=== PATIENT | female | born 1940 | race Caucasian/White ===

== ENCOUNTER 2017-02-04 17:26 | Inpatient (IN) | payer MEDICARE ==
[~2017-02-04] VITALS: Ht 162.6 cm; Wt 70.2 kg
--- NOTE | ~2017-02-04 | FD ---
ADMIT: 02/04/2017 RM/LOC: 429 [facility] MR#: [id number] [address] [address] DIOR THOMSON [address] [place] [id number] Final Diagnosis SEX: F AGE: 76 : 1940 ADMISSION DATE: 02/04/2017 DISCHARGE DATE: 02/06/2017 Eufemia Zamora RN scribing for Dr. Dmitry Goetz. REASON FOR ADMISSION: Chest pain with elevated cardiac enzymes. PROCEDURES PERFORMED: On 02/05/[address] Armen Hector, selective coronary angiography with nonobstructive coronary artery disease finding. CONSULTS OBTAINED: On 02/06/2017, Dr. Trejo for dizziness. FINAL DIAGNOSES: 1. 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 2. Prior tissue aortic valve replacement. 3. Nonobstructive coronary artery disease. 4. Vertigo. Eufemia Zamora RN / Dmitry Goetz MD / panl JOB #: [id number] CC: Dmitry Goetz MD, Attending Physician UNKNOWN, Family Physician
--- NOTE | ~2017-02-04 | CATH ---
Cardiac Diagnostic Report Demographics Patient Name ALIX Rooney Gender Female Date of 1940 Age 76 year(s) Patient Number [id number] Date of Study 02/05/2017 Visit Number [id number] Room Number 429 [employer] Ht 162.56 cm Wt 69.85 kg Accession Number [id number] BSA 1.75 m kg/m Referring Sofy GARCIA Primary Physician Physician Dmitry Performing Fruehling Armen R Secondary Physician Physician Diagnostic Fruehling Armen R Assisting Physician Physician Interventional Fruehling Armen R Physician Redipper Physician Findings and Conclusions Diagnostic Findings and Conclusion 1. Non-obstructive CAD-No culprit stenosis noted 2. RC III flow throughout Diagnostic Recommendations 1. Will evaluate for further with an echo to assess LV function 2. Treat medically. Suspect elevated enzymes secondary to HTN or an apical ballooning variant. Procedure Description The patient was brought to the diagnostic cardiac catheterization laboratory in the fasting, non-sedated state. Informed consent was obtained in the written and verbal form after the risks and benefits were explained. The patient had no further questions and agreed to proceed. The planned puncture-incision site(s) were shaved and prepped with ChloraPrep and draped in the usual sterile manner. Conscious sedation, supplemental oxygen, and pain control medications were delivered by a registered nurse under physician guidance. Surface ECG rhythm, blood pressure measurement, and pulse oximetry were monitored throughout the procedure. Arterial access. The right radial access site was infiltrated with lidocaine. The vessel was entered with the Seldinger technique. A 6F sheath was advanced into the vessel and used for catheter placement. Radial cocktail administered per protocol. Selective right coronary angiography. A JR4 catheter was advanced into the right coronary vessel ostium under fluoroscopic guidance. Contrast was injected by hand. Images were obtained in multiple projections. Selective left coronary angiography. A FL3.5 catheter was advanced into the left coronary vessel ostium under Fluoroscopic guidance. Contrast was injected by hand. Images were obtained in multiple projections. Arterial artery hemostasis was achieved with a TR band. The patient was transferred to a regular nursing floor via cart accompanied by a nurse. The patient left the laboratory in stable condition. Diagnostic Cath Status: Urgent Procedure Procedure Type Diagnostic procedure:Angiography:, Coronary Angios Indications: NSTEMI, Diabetes and Hypertension. The procedure was explained in detail to the patient. Risks, complications and alternative treatments were reviewed. Written consent was obtained. Medications Reviewed with Patient prior to Procedure. Complications: No Complication. Angiographic Findings Dominance: Right Cardiac Arteries and Lesion Findings LMCA: Normal (0% Stenosis). LAD: Abnormal. Lesion on Mid LAD: 40% stenosis . Lesion on 1st Diag: Ostial.60% stenosis . LCx: Normal (0% Stenosis). RCA: Abnormal. Lesion on Mid RCA: 40% stenosis . Coronary Tree Procedure Data Procedure Date Date: 02/05/2017Start: 08:29 AMEnd: 08:58 AM Entry Locations - Percutaneous access was performed through the Right Radial artery (Primary location). A 6 Fr sheath was inserted. Hemostasis was successfully obtained using a TR band. Procedure Medications Order and Administration + + +-------+--------+ !Time !Medication !Dosage !Route ! + + +-------+--------+ !02/05/2017 !Versed !2 mg !I.V. ! !08:28 AM ! ! ! ! + + +-------+--------+ !02/05/2017 !Fentanyl !50 mcg !I.V. ! !08:28 AM ! ! ! ! + + +-------+--------+ !02/05/2017 !Sodium Chloride !10 ml !I.V. ! !08:28 AM ! ! ! ! + + +-------+--------+ !02/05/2017 !Oxygen !4 l/min!NC ! !08:31 AM ! ! ! ! + + +-------+--------+ !02/05/2017 !SF Radial Cocktail: 200mcg Nitro, 2.5 mg ! !I.A. ! !08:36 AM !Verapamil, 5000u Heparin ! ! ! + + +-------+--------+ Devices Used - ACATH 6F FR4 CATHETER 100CMwas used for:Right coronary angiography. - ACATH 6FR FL3.5 CATHETER 100CMwas used for:Left coronary angiography. Contrast Material - Isovue 39211 ml Fluoroscopy Time: Diagnostic: 3:48 minutes. Total: 3:48 minutes. Fluoroscopy Dose: Diagnostic: 454 mGy. Total: 454 mGy. Estimated Blood Loss: 7 ml. Medical History Allergies - Codiene. Risk Factors The patient risk factors include:hypertension, orally-treated diabetes mellitus, last creatinine: 1.1 mg/dl, creatinine clearance: 47.23 ml/min and prior valve surgery/procedure. Admission Data Admission Date: 02/04/2017 Admission Time: 05:26 PM Insurance Payors: Medicare. Clinical Evaluation Leading to Procedure - The patient's CAD presentation was assessed as: Non-STEMI. - The patient's anginal syndrome during the past two weeks was assessed as: Class IV according to the [place] Cardiovascular Society Classification System (CCS). Anti-anginal medications were prescribed during the past two weeks. The medication is: Beta Blockers. Hemodynamics Condition: Rest O2 Consumption: Estimated: 166.51Heart Rate: 82 bpm Pressures (mmHg) +-----+ + !Site !Pressure ! +-----+ + !AO !66/44 (54) ! +-----+ + Shunts Oxygen Values O2 Capacity 190.4 O2 Consumption 166.51 Signatures
--- NOTE | ~2017-02-04 | ECH ---
Transthoracic Echocardiography Report (TTE) Demographics Patient Name DIOR THOMSON Date of Study 02/05/2017 Patient Number [id number] Visit Number [id number] Date of 1940 Room Number 429 Accession Number [id number] Gender Female Age 76 year(s) Referring Seun Grimm MD [employer] Driver Yenifer Spencer [facility] Physician Physician Interpreting Krunal Izquierdo Superintendent [employer] Physician Supervising Ordering Physician Seun Grimm MD, MD/[facility] Nurse Stress Top Icer Conclusions Summary Technically good exam. The estimated left ventricular ejection fraction is 45%. Apical hypokinesis consistent with apical ballooning syndrome. Diastolic assessment reveals Grade I diastolic dysfunction. Normal right ventricle structure with reduced function. The patient is known to have a 23mm Beau Karimi bioprosthetic aortic valve. Mean gradient is 6 mmHg. Peak velocity obtained in apical view. There is no aortic regurgitation by color Doppler. Procedure Type of Study TTE procedure:Echo Complete SF. Procedure Date Date: 02/05/2017 Start: 11:27 AM Technical Quality: Good visualization Indications:Chest pain, Elevated Troponin, Diabetes, Hypertension, Left Bundle Branch Block (LBBB) and Prosthetic valve function. Additional Indications:NSTEMI Appropriate Use Criteria: 9 Height: 64 inches Weight: 154 pounds BSA: 1.75 m Rhythm: NSR HR: 62 bpm BP: 101/59 mmHg Allergies - Codiene. M-Mode/2D Measurements LV Diastolic Dimension: 5.22 cm LV Systolic Dimension: 3.95 cm LV Septum Diastolic: 0.77 cm LV PW Diastolic: 0.78 cm AO Root Dimension: 2.65 cm Cardiac Output: 5.63 l/min LA Dimension: 3.92 cm Cardiac Index: 3.22 l/min*m RV Diastolic Dimension: 3.38 cm LA volume index: 30 ml/m LVOT: 2.3 cm LVOT VTI: 21.88 cm RV Base: 2.7 cm LV Stroke volume: 90.86 ml RV Mid: 1.7 cm LV Stroke volume index: 51.92 ml/m TAPSE: 1 cm TDI-S': 8 cm/s Doppler Measurements AV Peak Velocity: 1.7 m/s MV Peak E-Wave: 0.56 m/s AV Peak Gradient: 11.56 mmHg MV Peak A-Wave: 1.08 m/s AV Mean Gradient: 5.34 mmHg MV E/A Ratio: 0.52 LVOT Peak Velocity: 1.03 m/s MV P1/2t: 48.5 msec AV Area (Continuity):2.6 cm MV Deceleration Time: 157.5 msec TR Velocity:2.35 m/s MV Area (PHT): 4.54 cm TR Gradient:22.09 mmHg PV Peak Velocity: 0.78 m/s Estimated RAP:3 mmHg PV Peak Gradient: 2.42 mmHg Estimated RVSP: 25 mmHg Estimated PASP: 25.09 mmHg E' Lateral Velocity: 0.05 m/s A' Lateral Velocity: 0.14 m/s RA Area: 9.99 cm Findings Left Ventricle The left ventricle is normal in size . Diastolic assessment reveals Grade I diastolic dysfunction. Right Ventricle Normal right ventricle structure with reduced function. Left Atrium Normal left atrial size. Right Atrium Normal right atrial size. Mitral Valve Normal mitral valve structure and function. Trivial mitral regurgitation by color Doppler. Aortic Valve The patient is known to have a 23mm Beau Karimi bioprosthetic aortic valve. Mean gradient is 6 mmHg. Peak velocity obtained in apical view. There is no aortic regurgitation by color Doppler. Tricuspid Valve Normal tricuspid valve structure and function. Mild tricuspid regurgitation by color Doppler. Normal pulmonary pressures. Pulmonic Valve Normal pulmonic valve structure and function. Mild-moderate pulmonic valve regurgitation by color Doppler. Pericardial Effusion No evidence of pericardial effusion. Miscellaneous Visualized portions of the aortic root and ascending aorta appear normal in size. Suboptimal subcostal window to evaluate the IVC and interatrial septum. Pleural Effusion No evidence of pleural effusion. Contractility Score LV regional wall motion:(0-Non visualized 1-Normal 2-Hypokinesis 3-Akinesis 4-Dyskinesis 5-Aneurysm) Signature
[2017-02-07] MEDS ORDERED: NEURONTIN DPS100 MG PO (11:03)
[2017-02-07] MEDS ORDERED: ASA CHILDREN'S81 MG PO (11:03)
[2017-02-07] MEDS ORDERED: GLUCOPHAGE-DPS500 MG PO (11:04)
[2017-02-07] MEDS ORDERED: ANTIVERT-DPS25 MG PO (11:04)
[2017-02-07] MEDS ORDERED: ZOCOR DPS40 MG PO (11:05)
[2017-02-07] MEDS ORDERED: VITAMIN D-32000 UNI1 PO (11:05)
[2017-02-07] MEDS ORDERED: COLACE-DPS100 MG PO (11:05)
[2017-02-07] MEDS ORDERED: METOPROLOL TART25 MG PO (11:05)
[2017-02-07] MEDS ORDERED: PLAVIX75 MG PO (11:06)
--- NOTE | 2017-02-18 06:36 | CO ---
ADMIT: 02/04/2017 RM/LOC: 429 [facility] MR#: [id number] [address] [address] DIOR ROSENBAUM [address] [place] [address] Consultation SEX: F AGE: 76 : 1940 DATE OF CONSULTATION: 02/06/2017 ATTENDING PHYSICIAN: Dmitry Goetz CONSULTING PHYSICIAN: Mateo Trejo MD CHIEF COMPLAINT: Dizziness. HISTORY OF PRESENT ILLNESS: Ms. Rosenbaum is 76-year-old. She presented with cardiac dysfunction or symptomatology, has undergone extensive evaluation including angiogram without identifiable cardiovascular disorder, but she describes dizziness that has been present over the last several days especially if she turns to the left or looks up. She states, several years ago she had a similar bout that lasted a couple of weeks and went away. She denies hearing change. She did not develop vomiting during these episodes, but does feel sick to her stomach. With the acute symptoms, she tends to turn back to the right side which helps to resolve the symptoms within 10-15 seconds. She denies hearing change, ear fullness, or peripheral motor or sensory neurologic changes. Present medications, allergies, ROS, PFSH summarized in medical chart. PHYSICAL EXAM: GENERAL: Ms. Rosenbaum is 76-year-old. She is alert. She is lying in her bed on the right side. HEENT: Her pupils are equal. Conjunctivae clear. Ear canals have cerumen, but not overly obstructive and TMs transparent. No middle ear effusion. Nose, mouth, and pharynx clear. Attempts at rolling on the left side cause acute vertigo with rotatory nystagmus to the left, has a mildly delayed onset, but within 1-2 seconds develops and is brisk. With initial attempt, we did resume right-sided position which allowed the vertigo to subside. A subsequent repeat test showed it to recur and with lying in the left side position, the vertigo did resolve within 15-20 seconds. Both episodes were associated with vertigo and nystagmus. IMPRESSION: History and exam consistent with benign positional vertigo, left sided. RECOMMENDATIONS: Physical therapy consultation with crystal realignment maneuver. I discussed the rationale for this with Ms. Rosenbaum who is in acceptance of the recommendation. Mateo Trejo MD/ martinez JOB #: [id number] CC: Dmitry Goetz, Attending Physician ADMIT: 02/04/2017 RM/LOC: 429 [facility] MR#: [id number] [address] [place] [id number] DIOR ROSENBAUM [address] [place] [address] Consultation SEX: F AGE: 76 : 1940 UNKNOWN, Family Physician
--- NOTE | 2017-03-06 10:32 | HP ---
ADMIT: 02/04/2017 RM/LOC: 429 [facility] MR#: [id number] [address] [address] [place] [address] History and Physical SEX: F AGE: 76 : 1940 DATE OF SERVICE: REASON FOR ADMISSION: Chest pain and elevated cardiac enzymes. HISTORY OF PRESENT ILLNESS: Jackie is a 76-year-old lady who underwent a bioprosthetic aortic valve replacement for symptomatic aortic stenosis in December 2015. She is also diabetic. Preoperatively, she had nonobstructive disease, mostly of the LAD. She did not require bypass. Her LV function has been preserved. She was transferred from [place] last night after an episode of chest discomfort, hypertension, and elevated cardiac enzymes. She has been struggling with vertigo for the past week. This has been really a problem for her and limiting. It is positional and she describes the room as spinning. It sounds like she was at physical therapy at [place] and they were trying maneuvers to help her with her vertigo. She said shortly after they were done, she had some chest discomfort, described as a moderate chest pressure, heaviness, substernally up into her upper chest. She said it felt like an elephant standing on her chest. There was some associated shortness of breath and then she said she felt a burning in her chest. Her blood pressure was markedly elevated at that time, greater than 190 systolic. She was taken to the ER. They took her to CAT scan, I think there were concerns of a possible stroke. The CT scan was reportedly negative. Her cardiac enzymes came back positive with a troponin of 2. In total, her chest discomfort lasted for about an hour and a half and as her blood pressure improves, so did her chest pain. She has an underlying left bundle branch block which is not new. Her initial troponin was over 2. Last night, when she arrived, her troponin was 8, CK was 200 with an MB of 26. This morning her troponin is down to 5.75. She has not had any chest discomfort overnight. Besides her left bundle branch block, she has not had any arrhythmias. Her vertigo has been her main limitation lately. She denies significant palpitations. Overall, she has felt better since her aortic valve was replaced. She has not had increasing edema, orthopnea, PND. No recent syncope or presyncope. PAST MEDICAL HISTORY: Illnesses include her history of aortic stenosis status post aortic valve replacement, hypertension, hyperlipidemia, diabetes, recent vertigo and she suffers from anxiety. PAST SURGICAL HISTORY: Includes a hysterectomy, appendectomy, 2 back surgeries. She has had elbow surgery and thumb surgery. ALLERGIES: CODEINE. HOME MEDICATIONS: Include: 1. Aspirin 81 daily. 2. Meclizine 12.5 mg 1-2 tabs t.i.d. p.r.n. 3. Gabapentin 300 mg at bedtime. 4. Metformin 500 daily. ADMIT: 02/04/2017 RM/LOC: 429 [facility] MR#: [id number] [address] [place] [id number] ALIX, [place] [address] History and Physical SEX: F AGE: 76 : 1940 5. Metoprolol 25 b.i.d. 6. Simvastatin 20 at bedtime. 7. Docusate 200 at bedtime. 8. Vitamin D3 2000 units daily. FAMILY HISTORY: Her father at age 87 of a myocardial infarction. She had a brother who of a heart attack at age 50. One brother and a sister with diabetes. Her mother from breast cancer. 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 She has been . She has 3 children. She has never smoked. She currently lives in [place], closer to a sister. No alcohol or illicit drug use. REVIEW OF SYSTEMS: A full 12-point review of systems was reviewed with the patient and noncontributory other than that mentioned in the HPI. PHYSICAL EXAM: VITAL SIGNS: Her blood pressure is 96/63, pulse is 76, respirations 14, she is afebrile, and O2 sats are 93% on room air. SKIN: Mildly pale. [place], warm and dry. EYES: Sclerae clear. No xanthelasmas. ENT: Oral mucosa is pink and moist. No jugular venous distention or carotid bruits. HEART: With a prominent S2 and a very soft systolic murmur at the upper sternal borders. Regular rate and rhythm. No rubs or gallops. CHEST: Mild kyphosis. Respirations are even and unlabored. Lungs are clear to auscultation. ABDOMEN: Soft and nontender. MUSCULOSKELETAL: Gait is normal. EXTREMITIES: Peripheral pulses palpable. No clubbing, cyanosis or edema. PSYCH: She is quite anxious and a little tangential in her thought process, but she is alert, oriented, and cooperative. LABORATORY DATA: Her platelets are 134,000, white count 5.7, hemoglobin is 14.0. Her troponin this morning is 5.75 with a CK of 199 and MB of 19.5. Her LDL is 73, HDL is 40, total cholesterol 153, triglycerides 198. Her creatinine 1.1, glucose 179, and potassium 3.9. A 12-lead EKG shows sinus rhythm with an underlying left bundle branch block, which is not new. IMPRESSION: 1. Sal-DM-ugmxaoupm acute coronary syndrome. 2. Prior bioprosthetic aortic valve replacement in December 2015. 3. Known history of nonobstructive coronary disease. 4. Type 2 diabetes. 5. Hypertension. 6. Hyperlipidemia. 7. Left bundle branch block. 8. Recent vertigo. ADMIT: 02/04/2017 RM/LOC: [address] [place] [address] MR#: [id number] [address] [address] JACKIE THOMSON [address] [address] History and Physical SEX: F AGE: 76 : 1940 RECOMMENDATIONS: She has a history of nonobstructive coronary disease and she now presents with chest discomfort consistent with angina. It was self- limited, but her cardiac biomarkers are positive, consistent with an acute coronary syndrome. She also has high risk features with a known history and her underlying diabetes and positive enzymes. Ultimately, I recommended coronary angiography. I will most likely avoid the bioprosthetic aortic valve and not perform a left heart catheterization. The procedure was discussed with her including the potential risk and benefits. Potential risks including, but not limited to, bleeding or vascular trauma, myocardial infarction, stroke, kidney failure, and even a small possibility of or disruption of her aortic valve. She states understanding and wishes to proceed. We will also do an echo. She is already on heparin. She is currently pain free and otherwise hemodynamically stable. We will plan on proceeding this morning. Armen Hector MD/ martinez JOB #: [id number] CC: Dmitry Goetz, Attending Physician UNKNOWN, Family Physician Sendy Moreno MD
== END 2017-02-06 16:20 | disposition home or self-care (01) | DRG 287 ==
LOC: 4PCU 17:26
PROVIDERS: ADMIT Internal Medicine
PROC: B2111ZZ Fluoroscopy of Multiple Coronary Arteries using Low Osmolar Contrast (ICD-10-PCS; principal; 2017-02-05)
DX: I42.8 Other cardiomyopathies (principal); I51.81 Takotsubo syndrome; I44.7 Left bundle-branch block, unspecified; E11.9 Type 2 diabetes mellitus without complications; I10 Essential (primary) hypertension; H81.12 Benign paroxysmal vertigo, left ear; I25.119 Atherosclerotic heart disease of native coronary artery with unspecified angina pectoris; E78.5 Hyperlipidemia, unspecified; F41.9 Anxiety disorder, unspecified; Z79.82 Long term (current) use of aspirin; Z95.2 Presence of prosthetic heart valve; Z82.49 Family history of ischemic heart disease and other diseases of the circulatory system